=== PATIENT | female | born 1980 | race Caucasian/White ===

== ENCOUNTER 2018-10-09 10:46 | Day surgery (SDC) | payer OTHER | END 2018-10-09 14:20 | disposition home or self-care (01) | LOC: FASU 10:46 ==

== ENCOUNTER 2018-12-11 10:29 | Day surgery (SDC) | payer OTHER ==
[2018-12-05 13:16] VITALS: BMI 22.6
[2018-12-11 11:04] VITALS: TEMP 98.3
[2018-12-11] MEDS ORDERED: PROPOFOL 20 ML ONE ×2 (12:55)
[2018-12-11] MEDS ORDERED: LIDOCAINE HCL/PF 2% SDV 5ML VIAL ONE (12:55)
[2018-12-11 13:59] VITALS: BP 123/81; PULSE 79
--- NOTE | 2018-12-13 17:07 | PATH ---
Surgical Pathology Report Patient Name: RASHIDA PARKS [facility]. Rec. #: [id number] /Age/Gender: 1980 (Age: 38) / F Account: [id number] Location: [facility] Taken: 12/11/2018 Received: 12/11/2018 Reported: 12/13/2018 Physicians: Dorita Wang M.D. Specimen(s) Received A: SECOND PORTION DUODENUM B: ANTRUM C: GE JUNCTION Clinical History History of Jones's esophagus Final Diagnosis A. SECOND PORTION OF DUODENUM, BIOPSY: DUODENUM MUCOSA WITH NO SIGNIFICANT PATHOLOGIC CHANGE. NO HISTOLOGIC EVIDENCE OF CELIAC DISEASE. B. ANTRUM, BIOPSY: GASTRIC MUCOSA WITH CHRONIC GASTRITIS. IMMUNOSTAIN FOR H. PYLORI IS NEGATIVE. NEGATIVE FOR INTESTINAL METAPLASIA. C. GE JUNCTION, BIOPSY SQUAMOUS AND GASTRIC MUCOSA WITH MILD ACUTE AND CHRONIC INFLAMMATION, AND CHANGES CONSISTENT WITH REFLUX ESOPHAGITIS. NEGATIVE FOR INTESTINAL METAPLASIA. Electronically Signed Manjeet Rodrigues M.D. Gross Description A. Received in formalin, labeled "biopsy second portion of duodenum" is a knight, irregular portion of soft tissue measuring 0.3 cm. in greatest dimension. The specimen is submitted in toto in one cassette. B. Received in formalin, labeled "biopsy gastric antrum" is a knight, irregular portion of soft tissue measuring 0.4 cm. in greatest dimension. The specimen is submitted in toto in one cassette. C. Received in formalin, labeled "biopsy GE junction" are 5 knight, irregular portions of soft tissue ranging from 0.3-0.7 cm. in greatest dimension. The specimens are submitted in toto in one cassette. 12/12/2018 [facility]12/12/2018
== END 2018-12-11 14:10 | disposition home or self-care (01) ==
LOC: FASU-ENDO 10:29
PROVIDERS: ATTEND Internal Medicine Gastroenterology
PROC: 0DB68ZX Excision of Stomach, Via Natural or Artificial Opening Endoscopic, Diagnostic (ICD-10-PCS; 2018-12-11)
PROC: 0DB48ZX Excision of Esophagogastric Junction, Via Natural or Artificial Opening Endoscopic, Diagnostic (ICD-10-PCS; 2018-12-11)
PROC: 0DB98ZX Excision of Duodenum, Via Natural or Artificial Opening Endoscopic, Diagnostic (ICD-10-PCS; principal; 2018-12-11 13:02)
DX: K22.70 Barrett's esophagus without dysplasia (principal); K29.50 Unspecified chronic gastritis without bleeding; K21.0 Gastro-esophageal reflux disease with esophagitis
CPT/HCPCS: 84703; 88305-TC; 88342-TC

== ENCOUNTER 2020-06-02 10:13 | Day surgery (SDC) | payer OTHER ==
[2020-05-27 15:03] VITALS: BMI 21.4
[2020-06-02] MEDS ORDERED: PROPOFOL 20 ML ONE (10:47)
[2020-06-02 10:59] VITALS: TEMP 98.2
[2020-06-02 12:15] VITALS: BP 126/92; PULSE 76
== END 2020-06-02 13:00 | disposition home or self-care (01) ==
LOC: FASU-ENDO 10:13
PROVIDERS: ATTEND Internal Medicine Gastroenterology
PROC: 0DB78ZX Excision of Stomach, Pylorus, Via Natural or Artificial Opening Endoscopic, Diagnostic (ICD-10-PCS; 2020-06-02)
PROC: 0DB48ZX Excision of Esophagogastric Junction, Via Natural or Artificial Opening Endoscopic, Diagnostic (ICD-10-PCS; principal; 2020-06-02 11:23)
DX: K22.70 Barrett's esophagus without dysplasia (principal); K22.9 Disease of esophagus, unspecified; K29.70 Gastritis, unspecified, without bleeding; K31.89 Other diseases of stomach and duodenum; Z09 Encounter for follow-up examination after completed treatment for conditions other than malignant neoplasm
CPT/HCPCS: 84703

== ENCOUNTER 2021-07-13 10:10 | Day surgery (SDC) | payer OTHER ==
[2021-07-11 13:30] VITALS: BMI 22.2
[2021-07-13] MEDS ORDERED: LIDOCAINE HCL/PF 2% SDV 5ML VIAL ONE (10:51)
[2021-07-13] MEDS ORDERED: PROPOFOL 20 ML ONE ×4 (10:52)
[2021-07-13 11:40] VITALS: TEMP 97.8
[2021-07-13 12:03] VITALS: BP 129/71; PULSE 79
== END 2021-07-13 12:16 | disposition home or self-care (01) ==
LOC: FASU-ENDO 10:10
PROVIDERS: ATTEND Internal Medicine Gastroenterology
PROC: 0DB68ZX Excision of Stomach, Via Natural or Artificial Opening Endoscopic, Diagnostic (ICD-10-PCS; 2021-07-13)
PROC: 0DB18ZX Excision of Upper Esophagus, Via Natural or Artificial Opening Endoscopic, Diagnostic (ICD-10-PCS; 2021-07-13)
PROC: 0DB28ZX Excision of Middle Esophagus, Via Natural or Artificial Opening Endoscopic, Diagnostic (ICD-10-PCS; 2021-07-13)
PROC: 0DB38ZX Excision of Lower Esophagus, Via Natural or Artificial Opening Endoscopic, Diagnostic (ICD-10-PCS; 2021-07-13)
PROC: 0DB48ZX Excision of Esophagogastric Junction, Via Natural or Artificial Opening Endoscopic, Diagnostic (ICD-10-PCS; 2021-07-13)
PROC: 0DB98ZX Excision of Duodenum, Via Natural or Artificial Opening Endoscopic, Diagnostic (ICD-10-PCS; principal; 2021-07-13 11:17)
DX: Z13.810 Encounter for screening for upper gastrointestinal disorder (principal); K29.50 Unspecified chronic gastritis without bleeding; K21.00 Gastro-esophageal reflux disease with esophagitis, without bleeding; Z86.19 Personal history of other infectious and parasitic diseases
CPT/HCPCS: 84703; 88305-TC; 88342-TC

== ENCOUNTER 2022-03-28 05:14 | Day surgery (SDC) | payer OTHER ==
[2022-03-27 13:50] VITALS: BMI 22.4
[2022-03-28 10:57] VITALS: BP 118/83; PULSE 81; RESP 14; TEMP 97.8
== END 2022-03-28 10:58 | disposition home or self-care (01) ==
LOC: JASU-ENDO 05:14
PROVIDERS: ATTEND Student in an Organized Health Care Education/Training Program
PROC: 0DBN8ZX Excision of Sigmoid Colon, Via Natural or Artificial Opening Endoscopic, Diagnostic (ICD-10-PCS; principal; 2022-03-28 08:30)
DX: K63.5 Polyp of colon (principal); K64.1 Second degree hemorrhoids; K64.8 Other hemorrhoids
CPT/HCPCS: 81025; 88305-TC

== ENCOUNTER 2022-05-02 04:41 | Day surgery (SDC) | payer OTHER ==
[2022-05-02 07:34] VITALS: BMI 22.4
[2022-05-02 08:44] VITALS: TEMP 98
[2022-05-02 09:34] VITALS: BP 126/87; PULSE 70; RESP 15
== END 2022-05-02 09:42 | disposition home or self-care (01) ==
LOC: JASU-ENDO 04:41
PROVIDERS: ATTEND Student in an Organized Health Care Education/Training Program
PROC: 0DB78ZX Excision of Stomach, Pylorus, Via Natural or Artificial Opening Endoscopic, Diagnostic (ICD-10-PCS; 2022-05-02)
PROC: 0DB68ZX Excision of Stomach, Via Natural or Artificial Opening Endoscopic, Diagnostic (ICD-10-PCS; 2022-05-02)
PROC: 0DBA8ZX Excision of Jejunum, Via Natural or Artificial Opening Endoscopic, Diagnostic (ICD-10-PCS; 2022-05-02)
PROC: 0DB98ZX Excision of Duodenum, Via Natural or Artificial Opening Endoscopic, Diagnostic (ICD-10-PCS; principal; 2022-05-02 08:30)
DX: K29.50 Unspecified chronic gastritis without bleeding (principal); D50.9 Iron deficiency anemia, unspecified
CPT/HCPCS: 81025; 88305-TC; 88342-TC